=== PATIENT | female | born 1940 | race Caucasian/White ===

== ENCOUNTER → 2017-03-01 | Outpatient (CLI) | payer OTHER | LOC: FCPNEURO 06:58 | PROVIDERS: ATTEND Psychiatry & Neurology Sleep Medicine | DX: G47.33 Obstructive sleep apnea (adult) (pediatric) (principal) ==

== ENCOUNTER 2017-11-05 10:48 | Emergency (ER) | payer OTHER ==
--- NOTE | 2017-11-05 11:19 | EDPHY ---
H & P Time Seen by Provider: 11/05/17 11:18 HPI/ROS: CHIEF COMPLAINT: Back pain after a fall, and dizziness HISTORY OF PRESENT ILLNESS: Patient flew to [place] to visit her daughter and was there last week. On Sunday 6 days ago she was standing in the kitchen by the stove when she got a "head surge" felt lightheaded, felt like she was going to pass out, did fall and hit the floor. She noted that ever since that is happened she has felt her heart skipping a beat about every minute or two, and this happens intermittently since then. She has not had any recurrent syncope. Not associated with chest pain or shortness of breath. She did hit her head and has a little bump but does not have a headache today, no visual symptoms, no nausea or vomiting, no neurologic symptoms. She does have pain in her back both in her mid thoracic upper lumbar region as well as her tailbone. Not associated with weakness or numbness in extremities. REVIEW OF SYSTEMS: Eye: no change in vision ENT: no sore throat Cardiac: No chest pain Pulmonary: no cough or SOB Abdomen: no vomiting, diarrhea, abdominal pain, some decreased oral intake. Musculoskeletal: HPI Skin: Tailbone bruising Neuro: no headache Constitutional: no fever : no urinary symptoms A comprehensive 10 point review of systems is otherwise negative aside from elements mentioned in the history of present illness. PAST MEDICAL HISTORY: Includes remote history of breast cancer in 1989, appendectomy, sleep apnea. Is not on Paxil. Social history: Nonsmoker General Appearance: Alert and conversant, cooperative. Eyes: No scleral icterus. ENT, Mouth: Normal mucous membranes. No raccoon eyes or mastoid bruising. Respiratory: Normal respiratory effort, breath sounds equal, lungs are clear to auscultation. Cardiovascular: Regular rate and rhythm. No murmurs. Gastrointestinal: Abdomen is soft and non tender. Neurological: Alert, face symmetric, normal motor and sensory in extremities. Skin: Warm and dry, no rashes. Musculoskeletal: No cervical spine tenderness. She has lower thoracic and upper lumbar spine tenderness and bruising over her coccyx. Pelvis is stable. Psychiatric: Not agitated. Emergency Department course/MDM: Patient presents 6 days after syncope with injury to her back. She has her cervical spine cleared clinically by nexus. It is unlikely that she has skull fracture or intracranial hemorrhage or epidural or subdural, cranial imaging not indicated. Plan for D-dimer and troponin, cardiac monitoring, T and L- spine films. 1212: CTA discussed and consented for elevated D-dimer. 1425: results discussed; discussed with Dr. Ferrara recommends echo in ED; 1524: Normal echo per Dr. Ferrara, recommended discharge with close cardiology follow-up. Encouraged to increase oral fluid intake. Did not have any evidence of VT on monitor in the emergency department. Declined pain medication for sacral fracture. Warned that will take at least 6 weeks to heal. Smoking Status: Former smoker Constitutional: Initial Vital Signs Temperature (C) 36.5 C 11/05/17 10:58 Heart Rate 89 11/05/17 10:58 Respiratory Rate 18 11/05/17 10:58 Blood Pressure 144/83 H 11/05/17 10:58 O2 Sat (%) 95 11/05/17 10:58 O2 Delivery Mode Room Air Allergies/Adverse Reactions: adhesive tape Allergy (Verified 11/05/17 11:05) Home Medications: Medication Instructions Recorded Paxil 10 mg 04/15/09 Medical Decision Making - Diagnostics EKG Interpretation: 12-lead EKG interpreted by me; official reading is in computer system. My interpretation is sinus rhythm with multiple PVCs. Inferior Q-waves noted. Imaging Results: Imaging Impressions Chest X-Ray 11/05/17 11:39 Impression: 1. Clear lungs. No acute process. 2. No pneumothorax or acute fracture. Lumbar Spine X-Ray 11/05/17 11:40 Impression: Nothing acute identified. 2. Lumbar Spine, 2 views History: Pain, fall today, sacral pain Findings: Is possibly an S5 level, subtly displaced fracture. There is moderate- severe disk space narrowing between L4 and S1 where there are both ventral and dorsal osteophytes present. There is a mild retrolisthesis at L4-L5, likely degenerative. There are anterior osteophytes present throughout the upper lumbar spine as well. Alignment is anatomic. No acute lumbar fracture is identified. Impression: 1. Possible sacral S5 level fracture. 2. Degenerative changes in the lumbar spine. Thoracic Spine X-Ray 11/05/17 11:40 Impression: Nothing acute identified. 2. Lumbar Spine, 2 views History: Pain, fall today, sacral pain Findings: Is possibly an S5 level, subtly displaced fracture. There is moderate- severe disk space narrowing between L4 and S1 where there are both ventral and dorsal osteophytes present. There is a mild retrolisthesis at L4-L5, likely degenerative. There are anterior osteophytes present throughout the upper lumbar spine as well. Alignment is anatomic. No acute lumbar fracture is identified. Impression: 1. Possible sacral S5 level fracture. 2. Degenerative changes in the lumbar spine. Chest/Thorax CTA 11/05/17 12:07 Impression: 1. Negative for acute pulmonary embolus. 2. Incompletely characterized 1.0 cm left hepatic lesion. Would recommend correlation with any prior imaging to exclude metastatic disease. Findings and recommendations discussed with BRAXTON CADE at 1400 hour, 2017. Imaging: Discussed imaging studies w/ lending manager Radiologist Differential Diagnosis: Differential diagnosis considered for syncope and near syncope and dizziness including but not limited to vasovagal syncope, arrhythmia, dehydration, and blood loss. - Data Points Laboratory Results: Laboratory Results 11/05/17 11:20 11/05/17 11:20 11/05/17 11/05/17 11/05/17 12:03 11:20 11:20 WBC RBC Hgb Hct MCV MCH MCHC RDW Plt Count MPV Neut % (Auto) Lymph % (Auto) [place] % (Auto) Eos % (Auto) Baso % (Auto) Nucleat RBC Rel Count Absolute Neuts (auto) Absolute Lymphs (auto) Absolute Monos (auto) Absolute Eos (auto) Absolute Basos (auto) Absolute Nucleated RBC Immature Gran % Immature Gran # D-Dimer 2.22 ug/mLFEU H ug/mLFEU (0.00-0.50) Sodium 139 mEq/L mEq/L (135-145) Potassium 4.3 mEq/L mEq/L (3.3-5.0) Chloride 102 mEq/L mEq/L (97-110) Carbon Dioxide 28 mEq/l mEq/l (22-31) Anion Gap 9 mEq/L mEq/L (8-16) BUN 23 mg/dL mg/dL (7-23) Creatinine 0.8 mg/dL mg/dL (0.6-1.0) Estimated GFR > 60 Glucose 104 mg/dL H mg/dL (70-100) Calcium 9.7 mg/dL mg/dL (8.5-10.4) POC Troponin I 0.01 ng/mL ng/mL (0.00-0.08) 09/10/18 11:20 WBC 5.31 10^3/uL 10^3/uL (3.80-9.50) RBC 4.63 10^6/uL 10^6/uL (4.18-5.33) Hgb 13.9 g/dL g/dL (12.6-16.3) Hct 41.6 % % (38.0-47.0) MCV 89.8 fL fL (81.5-99.8) MCH 30.0 pg pg (27.9-34.1) MCHC 33.4 g/dL g/dL (32.4-36.7) RDW 13.3 % % (11.5-15.2) Plt Count 182 10^3/uL 10^3/uL (150-400) MPV 11.1 fL fL (8.7-11.7) Neut % (Auto) 64.6 % % (39.3-74.2) Lymph % (Auto) 17.5 % % (15.0-45.0) [place] % (Auto) 12.2 % % (4.5-13.0) Eos % (Auto) 4.5 % % (0.6-7.6) Baso % (Auto) 0.8 % % (0.3-1.7) Nucleat RBC Rel Count 0.0 % % (0.0-0.2) Absolute Neuts (auto) 3.43 10^3/uL 10^3/uL (1.70-6.50) Absolute Lymphs (auto) 0.93 10^3/uL L 10^3/uL (1.00-3.00) Absolute Monos (auto) 0.65 10^3/uL 10^3/uL (0.30-0.80) Absolute Eos (auto) 0.24 10^3/uL 10^3/uL (0.03-0.40) Absolute Basos (auto) 0.04 10^3/uL 10^3/uL (0.02-0.10) Absolute Nucleated RBC 0.00 10^3/uL 10^3/uL (0-0.01) Immature Gran % 0.4 % % (0.0-1.1) Immature Gran # 0.02 10^3/uL 10^3/uL (0.00-0.10) D-Dimer Sodium Potassium Chloride Carbon Dioxide Anion Gap BUN Creatinine Estimated GFR Glucose Calcium POC Troponin I Medications Given: Discontinued Medications Sodium Chloride (Ns) 1,000 mls @ 0 mls/hr IV EDNOW ONE; Wide Open PRN Reason: Protocol Stop: 11/05/17 14:23 Last Admin: 11/05/17 14:27 Dose: 1,000 mls Point of Care Test Results: Chemistry 11/05/17 12:03 POC Troponin I 0.01 ng/mL ng/mL (0.00-0.08) Departure - Departure Disposition: Home, Routine, Self-Care Clinical Impression: PVC (premature ventricular contraction) Sacral fracture, closed Qualifiers: Encounter type: initial encounter Zone of sacrum fracture: unspecified portion of sacrum Qualified Code(s): S32.10XA - Unspecified fracture of sacrum, initial encounter for closed fracture Condition: Good Instructions: Sacral Fracture (ED) Additional Instructions: Please go tomorrow to [facility] at 10:30 a.m. For Holter monitor placement. Referrals: Eliezer Connolly MD [Primary Care Provider] - As per Instructions J Carlos Dominique MD [Medical Doctor] - 11/19/17 2:00 pm
--- NOTE | 2017-11-05 11:23 | CPEKG ---
Test Reason : OPEN Blood Pressure : / mmHG Vent. Rate : 082 BPM Atrial Rate : 081 BPM P-R Int : 153 ms QRS Dur : 092 ms QT Int : 367 ms P-R-T Axes : 058 006 023 degrees QTc Int : 429 ms Sinus rhythm Multiple premature complexes, vent & supraven Inferior infarct, old Confirmed by Raul Hagen ([id number]) on 11/05/2017 11:23:05 AM Referred By: Confirmed By:Raul Hagen
[2017-11-05 11:48] LABS: PLATELET COUNT 182 10^3/uL (150-400)
[2017-11-05] MEDS ORDERED: IOPAMIDOL (ISOVUE 370) 100 ML BTL IV ONE (12:19)
[2017-11-05 13:29] VITALS: BP 137/81
[2017-11-05] MEDS ORDERED: NS 1,000 ML IV ONE (14:22)
--- NOTE | 2017-11-05 15:22 | ECHO ---
[email or web address] [address] [address] Main: [phone] Fax: Transthoracic Echocardiogram Name: ANNIA SHIN MR#: [id number] Study Date: 11/05/2017 Study Time: 02:58 PM Date of : 1940 Age: 77 year(s) Height: 170.2 cm (67 in.) Weight: 100.24 kg (221 lb.) BSA: 2.11 m2 Gender: Female Examination: Echo Indication: near syncope, pvcs Image Quality: Adequate Contrast: Requested by: Raul Hagen BP: 137 mmHg/81 mmHg Heart Rate: Rhythm: Indication: near syncope, pvcs Procedure Staff Hemmer Chainstitch: Graciela Garcia RDCS Reading Physician: Jacek Ferrara MD Requesting Provider: Conclusions: Normal size left ventricle. Normal global systolic LV function. EF is 57 %. No regional wall motion abnormality. The left atrium is mildly dilated. Mild to moderate mitral regurgitation. Mild tricuspid regurgitation is present. Normal size ascending aorta measuring 3.5 cm. Measurements: Chambers Valvular Assessment AV/MV Valvular Assessment TV/PV Normal Normal Normal Name Value Range Name Value Range Name Value Range Ao [place] (2D): 3.0 cm (1.4 cm-2.6 AV Vmax: 0.91 m/s (1 m/s-1.7 TR Vmax: 2.76 mm/s ( - ) cm) m/s) TR PGmax: 30 mmHg ( - ) IVSd (2D): 1.0 cm (0.6 cm-1.1 AV maxP mmHg ( - ) syst. PAP: 35 mmHg ( - ) cm) AV meanP mmHg ( - ) PV Vmax: 0.61 m/s (0.6 m/s-0.9 LVDd (2D): 5.0 cm (3.9 cm-5.3 LVOT Vmax: 0.75 m/s (0.7 m/s-1.1 m/s) cm) m/s) PV PGmax: 1 mmHg ( - ) LVDs (2D): 3.7 cm (2.1 cm-4 GAURANG (Vmax): 2.9 cm2 ( - ) cm) GAURANG (VTI): 2.8 cm ( - ) LVPWd (2D): 0.9 cm ( - ) MV E Vmax: 0.63 m/s ( - ) LVOTd 2.1 cm 2.1 cm mm MV A Vmax: 0.76 m/s ( - ) LVEF (BP): 57 % (>=55 %) MV E/A: 0.83 ( - ) RVDd(2D): 3.5 cm (1.9 cm-3.8 MV PHT: 0.057 s ( - ) cmmm) MVA (PHT): 3.9 s ( - ) Continued Measurements: Chambers Valvular Assessment AV/MV Valvular Assessment TV/PV Patient: ANNIA SHIN Study Date: 11/05/2017 Page 1 of 2 02:58 PM Name Value Name Value Name Value LADs: 3.6 cm MV DecTime: 180 m/s CVP (est.): 5 mmHg LADs Lon.7 cm MV E/E' Septal: 9.10 LA Area: 23.0 cm2 MV E/E' Lateral: 9.10 LA Volume: 78 ml MR ERO: 0.270 cm2 LA Volume Index: 37.0 ml/m2 MR PISA radius: 8 mm RA Area: 20.6 cm2 MR Reg. Volume: 58 ml Additional Vessels Name Value Ao Ascendin.5 cm Inferior Vena Cava: 1.6 cm Findings: Left Ventricle: Normal size left ventricle. No LV hypertrophy. Normal global systolic LV function. EF is 57 %. No regional wall motion abnormality. Unable to assess diastolic dysfunction. Right Ventricle: Normal size right ventricle. Normal RV function. Left Atrium: The left atrium is mildly dilated. Right Atrium: The right atrium is normal in size. Mitral Valve: The mitral valve is normal in appearance and function. No mitral stenosis is present. Mild to moderate mitral regurgitation. Aortic Valve: The aortic valve is tri-leaflet. Trivial aortic valve regurgitation. No aortic valve stenosis is present. Tricuspid Valve: The tricuspid valve is normal in appearance and function. Mild tricuspid regurgitation is present. The pulmonary artery pressure is normal. Right ventricular systolic pressure measures 35mmHg. Pulmonic Valve: The pulmonic valve is normal in appearance and function. Trivial pulmonic valve regurgitation. Aorta: The aorta is normal. Normal size aortic root measuring 3.0 cm. Normal size ascending aorta measuring 3.5 cm. IVC: The IVC is normal sized. Pericardium: No pericardial effusion. No pleural effusion. (No Signature Object) Patient: ANNIA SHIN Study Date: 11/05/2017 Page 2 of 2 02:58 PM [id number]
== END 2017-11-05 15:50 | disposition home or self-care (01) ==
DX: I49.3 Ventricular premature depolarization (principal); S32.10XA Unspecified fracture of sacrum, initial encounter for closed fracture; W19.XXXA Unspecified fall, initial encounter; Y92.000 Kitchen of unspecified non-institutional (private) residence as the place of occurrence of the external cause; Z87.891 Personal history of nicotine dependence
CPT/HCPCS: 71046; 71275; 72070; 72100; 93005; 93306; 96360; 99285; Q9967; 84484-PO

== ENCOUNTER 2017-11-08 16:28 | Emergency (ER) | payer OTHER ==
--- NOTE | 2017-11-08 17:27 | EDPHY ---
H & P Stated Complaint: FEELS HEART RACING/HEAD RUSHES SEEN SUNDAY FOR SAME Time Seen by Provider: 11/08/17 17:01 HPI/ROS: CHIEF COMPLAINT: Palpitations HISTORY OF PRESENT ILLNESS: 77-year-old female presents with palpitations. Recent intermittent palpitations, associated with lightheadedness. She was seen in this emergency department 2 days ago for similar symptoms. CT pulmonary angiogram was unremarkable and echocardiogram revealed mild to moderate mitral regurgitation and a normal ejection fraction. She had a Holter monitor placed yesterday morning and just had the monitor removed. After removal of the monitor she had an episode of palpitations, associated with dizziness. Episode lasted several seconds. Now resolved. REVIEW OF SYSTEMS: complete 10 point ROS negative except at noted in the HPI - Personal History Current Tetanus Diphtheria and Acellular Pertussis (TDAP): Yes - Medical/Surgical History Hx Asthma: No Hx Chronic Respiratory Disease: No Hx Diabetes: No Hx Cardiac Disease: No Hx Renal Disease: No Hx Cirrhosis: No Hx Alcoholism: No Hx HIV/AIDS: No Hx Splenectomy or Spleen Trauma: No Other PMH: Br CA, appy, deviated septum, sleep apnea - Social History Smoking Status: Former smoker - Physical Exam Exam: General Appearance: Alert, pleasant Eyes: Pupils equal and round, no conjunctival pallor or injection ENT, Mouth: Mucous membranes moist Neck: Normal inspection Respiratory: Lungs are clear to auscultation Cardiovascular: Regular rate and rhythm, no murmur Gastrointestinal: Abdomen is soft and nontender Neurological: A&O, nonfocal, normal gait Skin: Warm and dry, no rash Extremities: Nontender, no pedal edema Psychiatric: Mood and affect normal Constitutional: Initial Vital Signs Temperature (C) 36.5 C 11/08/17 16:30 Heart Rate 66 11/08/17 16:30 Respiratory Rate 18 11/08/17 16:30 Blood Pressure 178/90 H 11/08/17 16:30 O2 Sat (%) 93 11/08/17 16:30 O2 Delivery Mode Room Air Allergies/Adverse Reactions: adhesive tape Allergy (Verified 11/08/17 16:29) Home Medications: Medication Instructions Recorded NK [No Known Home Meds] 11/08/17 Medical Decision Making - Diagnostics EKG Interpretation: EKG interpreted by me reveals normal sinus rhythm, rate 78, multiple PVCs. Interpretation: Abnormal EKG ED Course/Re-evaluation: This patient presents with intermittent palpitations. [facility] called for Holter results, but it is after 5pm and no one is in the office. EKG reveals PVCs. Patient is clearly symptomatic when the PVCs occur. Old medical record reviewed and patient had extensive evaluation 2 days ago the emergency department. I feel that she is safe and stable for discharge home. She will follow up tomorrow with [facility] for Holter monitor results. Will start taking a baby aspirin daily. Differential Diagnosis: Includes though not limited to SVT, atrial fibrillation, PVCs, ventricular dysrhythmia. Departure - Departure Disposition: Home, Routine, Self-Care Clinical Impression: Palpitations Condition: Good Instructions: Heart Palpitations (ED) Additional Instructions: Call tomorrow morning for your Holter monitor test results. Return for worsening or persistent symptoms. Referrals: Eliezer Connolly MD [Primary Care Provider] - As per Instructions
[2017-11-08 17:39] VITALS: BP 186/98
--- NOTE | 2017-11-08 19:29 | CPEKG ---
Test Reason : OPEN Blood Pressure : / mmHG Vent. Rate : 078 BPM Atrial Rate : 080 BPM P-R Int : 160 ms QRS Dur : 091 ms QT Int : 393 ms P-R-T Axes : 032 -14 008 degrees QTc Int : 448 ms Sinus rhythm Multiform ventricular premature complexes Confirmed by Yadi Arambula ([id number]) on 11/08/2017 7:28:30 PM Referred By: Confirmed By:Yadi Arambula
== END 2017-11-08 17:39 | disposition home or self-care (01) ==
DX: R00.2 Palpitations (principal)

== ENCOUNTER 2017-12-31 11:03 | Observation (INO) | payer OTHER ==
[2017-12-31] MEDS ORDERED: NS 1,000 ML IV ONE (11:07)
[2017-12-31 11:51] LABS: PLATELET COUNT 181 10^3/uL (150-400)
[2017-12-31 11:58] LABS: PROTIME(PATIENT) 13.4 SEC (12.0-15.0)
--- NOTE | 2017-12-31 12:04 | PDGENHP ---
History & Physical Chief Complaint: SVT History of Present Illness: Ms. Leonard presents today for EPS with possible SVT ablation in the setting of recurrent syncope and near-syncope resulting in injury. Relevant Physical Exam: S1S2 RRR, respiratory exam CTA, a&o x3, pulses 2+ bilaterally. Cardiorespiratory Assessment: EPS with possible SVT ablation
[2017-12-31] MEDS ORDERED: BUPIVACAINE 0.75% 10 ML SDV ONE (13:43)
[2017-12-31] MEDS ORDERED: ISOPROTERENOL HCL/D5W 0.2 MG/50 ML BAG IV ONE (13:43)
[2017-12-31] MEDS ORDERED: LIDOCAINE 1% 300 MG/30 ML SDV ONE (13:43)
[2017-12-31] MEDS ORDERED: HEPARIN 10,000 UNIT/10 ML MDV (1,000 UNIT/ML) ONE (13:43)
[2017-12-31] MEDS ORDERED: PROPOFOL 200 MG/20 ML VIAL ONE ×3 (14:13→15:41)
[2017-12-31] MEDS ORDERED: fentaNYL 250 MCG/5 ML INJ ONE ×2 (14:14→15:26)
[2017-12-31] MEDS ORDERED: LIDOCAINE 2% 2 ML INJ ONE (14:28)
[2017-12-31] MEDS ORDERED: ROCURONIUM 50 MG/5 ML VIAL ONE ×3 (14:28→15:20)
--- NOTE | 2017-12-31 14:47 | PDANEPAE ---
ANE Past Medical History - Cardiovascular History Hx Hypertension: No Hx Arrhythmias: Yes Hx Chest Pain: No Hx Coronary Artery / Peripheral Vascular Disease: No Hx CHF / Valvular Disease: No Hx Palpitations: Yes - Pulmonary History Hx Oxygen in Use at Home: No - Endocrine History Hx Diabetes: No Hypothyroid: No Hyperthyroid: No Obesity: severe ANE Review of Systems Review of Systems: ANE Patient History - Allergies Allergies/Adverse Reactions: adhesive tape Allergy (Verified 11/08/17 16:29) - Home Medications Home Medications: Metoprolol Tartrate [Lopressor 25 mg (*)] 25 mg PO BID 12/24/17 [Last Taken Unknown] Propranolol HCl [Inderal 20mg (*)] 20 - 40 mg PO AD 12/24/17 [Last Taken Unknown ] - Smoking Hx Smoking Status: Former smoker ANE Labs/Vital Signs - Labs Result Diagrams: 12/31/17 11:30 12/31/17 11:30 ANE Physical Exam - Airway Neck exam: decreased ROM Mallampati Score: Class 1 Mouth exam: normal dental/mouth exam - Pulmonary Pulmonary: no respiratory distress - Cardiovascular Cardiovascular: regular rate and rhythym - ASA Status ASA Status: III ANE Anesthesia Plan Anesthesia Plan: general endotracheal anesthesia Urgent/Emergent Case: Chandni toro completed preop but documented later for safe timely pt care
[2017-12-31] MEDS ORDERED: MIDAZOLAM 2 MG/2 ML VIAL ONE (14:51)
[2017-12-31] MEDS ORDERED: PHENYLEPHRINE HCL 100 MCG/ML SYR ONE (15:17)
[2017-12-31] MEDS ORDERED: ONDANSETRON 4 MG/2 ML VIAL ONE (15:26)
[2017-12-31] MEDS ORDERED: DEXAMETHASONE 4 MG/ML VIAL ONE ×2 (15:26)
[2017-12-31] MEDS ORDERED: SUGAMMADEX SODIUM 200 MG/2 ML VIAL IVP ONE (16:07)
[2017-12-31] MEDS ORDERED: ACETAMINOPHEN 325 MG TAB PO PRN (16:08)
--- NOTE | 2017-12-31 16:35 | EPPROC ---
Electrophysiology Procedure Note: ELECTROPHYSIOLOGIC STUDY AND CATHETER MEDIATED ABLATION OF SLOW/FAST AV CASSANDRA REENTRY TACHYCARDIA PROCEDURES PERFORMED: 36625-59 EP evaluation with RA/RV/LA pace/record, with arrhythmia induction 63851-01 EP evaluation with RA/RV pace record, insert/reposition catheter, with arrhythmia induction 88784 Intracardiac catheter ablation, SVT arrhythmogenic focus 12749 3D mapping Fluoroscopy INDICATION: PROCEDURE: Catheters & Anesthesia: The patient arrived in the Electrophysiology Laboratory in the fasting state. The right clavicular region, right groin, and left groin area were prepped and draped in the usual sterile manner. Anesthesiologist Dr. Eva Casper administered general anesthesia. Appropriate non-invasive blood pressure, pulse oximetry and end-tidal CO2 monitoring was established. All catheters were placed percutaneously using the modified Seldinger technique , and advanced into position under fluoroscopic guidance. One #6 Bolivian hexapolar non-deflectable electrode catheter was inserted into the right atrial appendage via the left femoral vein (2mm spacing; except the proximal ring which was 25cm from the tip used for unipolar recordings). One #7 Bolivian deflectable octapolar electrode catheter was advanced to the His-bundle position via the left femoral vein (2mm spacing). One #7 [place]ian deflectable quadrapolar catheter was advanced to the anteroseptal right ventricle via the right femoral vein. One #7 [place]ivian deflectable catheter with 10 pairs of electrodes was placed via the right femoral vein into the coronary sinus. Heparin was given to keep ACT > 200 s. Programmed stimulation was performed from the right atrium, right ventricle and coronary sinus (left atrium). Parahisian pacing demonstrated constant H-A interval with changing V-A intervals and stimulus-A intervals during capture and loss of capture of proximal RBB proving retrograde conduction over AV node. AVNRT was induced easily during infusion of isoproterenol 2 mcg/min. Ventricular extrastimuli delivered during tachycardia without altering antegrade His bundle activation did not advance next atrial potential, indicating that the tachycardia was not utilizing an accessory pathway for retrograde conduction. VA interval was 35 ms. Post entrainment of the tachycardia from the ventricle, there was VAHV response. Mapping of the right atrium and coronary sinus during AVNRT identified earliest atrial activation above the tendon of Bianca at a level slightly posterior to the level of the His bundle, consistent with retrograde conduction over the fast AV cassandra pathway. A #8 Bolivian deflectable quadrapolar electrode catheter (2mm-5mm-2mm spacing) with 4 mm tip electrode and sensor for the 3D mapping Carto system was advanced to the right atrium. 3 D mapping of the inter-atrial septum and coronary sinus was performed and location of the AV node was marked. A Mobi sheath was used. RF applications were delivered to the region between the tricuspid annulus and the coronary sinus ostium, at the level of the upper edge of the coronary sinus ostium. Radiofrequency applications were also delivered along the roof of the proximal coronary sinus. Junctional rhythm occurred during all of the RF applications. Programmed stimulation was continued post ablation at baseline and during graded doses of isoproterenol upto 2 mcg/min. Sustained AVNRT was not inducible. There were no echo beats. The catheters were removed. Sheaths were removed in the EP lab after applying subcutaneous purse string suture. The patient was transferred to the cardiovascular holding area in stable condition. There were no apparent complications. Results: A. Spontaneous Intervals: Pre ablation SCL 1260 ms AH 75 ms HV 40 ms Post ablation SCL 730 ms AH 65 ms HV 40 ms B. Antegrade AV cassandra function (decremental pacing) Pre ablation FPERP 400 ms SPERP 360 ms WBB CL 350 ms Post ablation FPERP 400 ms WBB CL 390 ms C. Retrograde AV cassandra function (decremental pacing) Pre ablation FPERP 330 ms WBB CL 320 ms D. Arrhythmias: Sustained slow/fast AVNRT Cycle length 270 ms, AH interval 220 ms, CHAVES interval 50 ms VA interval 35 ms CONCLUSIONS 1. 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 ( Slow/fast AVNRT). 2. Successful ablation of the slow AV cassandra pathway with elimination of 1:1 antegrade conduction over the slow AV cassandra pathway, all retrograde conduction over the slow AV cassandra pathway and the inducibility of AVNRT. 3. No complications. Patient Problems: Problems Problem Status Onset Supraventricular tachycardia Acute
[2018-01-01 05:04] LABS: PLATELET COUNT 160 10^3/uL (150-400)
[2018-01-01 08:13] VITALS: BP 114/60
[2018-01-01] MEDS ORDERED: ASPIRIN 81 MG CHEWABLE TAB PO SCH (09:00)
--- NOTE | 2018-01-01 11:00 | ECHO ---
[email or web address] [address] [address] Main: [phone] Fax: Transthoracic Echocardiogram Name: ANNIA SHIN MR#: [id number] Study Date: 01/01/2018 Study Time: 09:55 AM Date of : 1940 Age: 77 year(s) Height: 167.6 cm (66 in.) Weight: 108.86 kg (240 lb.) BSA: 2.16 m2 Gender: Female Examination: Echo Indication: Image Quality: Contrast: Requested by: Cecil Sellers BP: 114 mmHg/60 mmHg Heart Rate: Rhythm: Normal sinus rhythm with ectopy Indication: Procedure Staff Seo Analyst: Darshan Randall RDCS Reading Physician: Montez Briones MD Requesting Provider: Conclusions: Normal global systolic LV function. EF is 72 %. Grade 1 diastolic dysfunction (abnormal relaxation). Measurements: Chambers Valvular Assessment AV/MV Valvular Assessment TV/PV Normal Normal Normal Name Value Range Name Value Range Name Value Range Ao Keny[place] (MM): 2.8 cm (2.2 cm-3.7 AV Vmax: 1.51 m/s (1 m/s-1.7 TR Vmax: 2.77 mm/s ( - ) cm) m/s) TR PGmax: 31 mmHg ( - ) IVSd (2D): 0.9 cm (0.6 cm-1.1 AV maxP mmHg ( - ) syst. PAP: 36 mmHg ( - ) cm) LVOT Vmax: 0.95 m/s (0.7 m/s-1.1 PV Vmax: 0.69 m/s (0.6 m/s-0.9 LVDd (2D): 4.4 cm (3.9 cm-5.3 m/s) m/s) cm) MV E Vmax: 0.72 m/s ( - ) PV PGmax: 2 mmHg ( - ) LVDs (2D): 2.6 cm (2.1 cm-4 MV A Vmax: 0.58 m/s ( - ) cm) MV E/A: 1.24 ( - ) LVPWd (2D): 0.8 cm ( - ) LVEF (2D): 72 (>=54 %) Continued Measurements: Chambers Valvular Assessment AV/MV Valvular Assessment TV/PV Name Value Name Value Name Value LADs Lon.3 cm MV E' Septal: 0.08 m/s CVP (est.): 5 mmHg LA Area: 16.5 cm2 MV E/E' Septal: 9.10 LA Volume: 44 ml MV E/E' Lateral: 7.30 LA Volume Index: 20.4 ml/m2 Patient: ANNIA SHIN Study Date: 01/01/2018 Page 1 of 2 09:55 AM Findings: Left Ventricle: Normal size left ventricle. No LV hypertrophy. Normal global systolic LV function. EF is 72 %. No regional wall motion abnormality. Grade 1 diastolic dysfunction (abnormal relaxation). Right Ventricle: Normal size right ventricle. Normal RV function. Left Atrium: The left atrium is normal in size. Right Atrium: The right atrium is normal in size. Mitral Valve: The mitral valve is normal in appearance and function. Trivial to mild mitral regurgitation. No mitral stenosis is present. Aortic Valve: The aortic valve is tri-leaflet and functions normally. There is no aortic valve regurgitation. Tricuspid Valve: The tricuspid valve appears normal. Pulmonic Valve: The pulmonic valve is normal in appearance and function. Aorta: The aorta is normal. Pericardium: No pericardial effusion. Exam Comments: Ectopy noted during exam.. (No Signature Object) Patient: ANNIA SHIN Study Date: 01/01/2018 Page 2 of 2 09:55 AM [id number]
--- NOTE | 2018-01-01 11:56 | GDS ---
ADMITTING DIAGNOSIS: Supraventricular tachycardia. 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 HOSPITAL COURSE: Batsheva Bell was admitted 12/31/2017, for EP study and SVT ablation in the setting of symptomatic SVT with near syncope, syncope, and injury. EP study demonstrated AV cassandra re-entrant tachycardia using the slow AV cassandra pathway for antegrade conduction and fast AV cassandra pathway for retrograde conduction. Patient underwent successful ablation with elimination of 1:1 antegrade conduction over the slow AV cassandra pathway. No chest discomfort , lightheadedness, dizziness, palpitations, or syncope. No issues overnight. The patient reports feeling quite well this morning without specific concerns. Lab values are within normal limits including troponin 0.230. ECG demonstrates normal UT interval. Echo is unchanged from pre-procedure. She is stable for discharge at this time. CONCLUSION: 1. AV cassandra re-entrant tachycardia using the slow AV cassandra pathway for antegrade conduction and the fast AV cassandra pathway for retrograde conduction. Slow/fast AVNRT. 2. Successful ablation of the slow AV cassandra pathway with elimination of 1:1 antegrade conduction over the slow AV cassandra pathway, all retrograde conduction over the slow AV cassandra pathway and ablation of AVNRT. 3. No complications. PHYSICAL EXAMINATION: GENERAL: Patient is feeling quite well this morning without issues or concerns. She is ambulating independently. She denies lightheadedness, dizziness, syncope, palpitations, or other associated symptoms. CARDIOVASCULAR: Regular rate and rhythm without gallops or rubs. RESPIRATORY: Exam is clear to auscultation. EXTREMITIES: Groin sites are clean and dry, nontender without redness, swelling, or oozing from the site. Pulses are 2+ bilaterally. DISCHARGE PLAN: 1. Patient was educated regarding groin precautions including restriction of lifting more than 10 pounds for 10 days. 2. Patient will make sure to get up and walk around every 45 minutes for 45 days. 3. No submerged bathing including baths or hot tubs until her groin sites are fully healed. 4. Patient will start aspirin 81 mg daily. 5. Patient will follow up in clinic as scheduled. She will contact the clinic with any new or concerning symptoms in the meantime. /[id number]/MODL MTDD
--- NOTE | 2018-01-01 13:39 | ASDISCHSUM ---
Discharge Information Plan Status:Home with No Needs Medically Cleared to Leave:12/31/2017 Discharge Date:01/01/2018 12:30 PM CM D/C Disposition:Home, Routine, Self-Care ADT D/C Disposition:Home, Routine, Self-Care Projected Discharge Date:01/01/2018 12:30 PM Transportation at D/C: Discharge Delay Reason: Follow-Up Date:01/01/2018 12:30 PM Discharge Slot: Final Diagnosis: Placement Information Patient Contact Information Contact Name:RONALD Relationship:Friend Address: Work Phone: City: [facility] Phone: State/[place] Code: Email: Financial Information Financial Class:Medicare Advantage Plans Primary Plan Desc:[facility] [facility] ADV[employer]AGE PLANS Primary Plan Number:[id number] Secondary Plan Desc: Secondary Plan Number: Assessment Information LACE LACE Length of stay for Answers: Less than 1 day current admission Acuity / Level of Answers: No Care: Did the patient have an inpatient admission? Comorbidities - select Answers: Other Notes: s/p ablation all that apply # of Emergency department Answers: 1-2 visits in the last 6 months Score: 2 Date Signed: 01/01/2018 01:38 PM Electronically Signed By:Rosemary Baird RN Intervention Information
--- NOTE | 2018-01-02 21:59 | CPEKG ---
Test Reason : OPEN Blood Pressure : / mmHG Vent. Rate : 078 BPM Atrial Rate : 078 BPM P-R Int : 170 ms QRS Dur : 096 ms QT Int : 422 ms P-R-T Axes : 067 018 -04 degrees QTc Int : 481 ms Sinus rhythm Inferior infarct Confirmed by Fredrick Felipe ([id number]) on 01/02/2018 9:58:34 PM Referred By: Confirmed By:Fredrick Felipe
--- NOTE | 2018-01-02 22:02 | CPEKG ---
Test Reason : OPEN Blood Pressure : / mmHG Vent. Rate : 069 BPM Atrial Rate : 068 BPM P-R Int : 166 ms QRS Dur : 090 ms QT Int : 433 ms P-R-T Axes : 055 000 -01 degrees QTc Int : 464 ms Sinus rhythm Ventricular premature complex Inferior infarct Confirmed by Fredrick Felipe ([id number]) on 01/02/2018 10:02:03 PM Referred By: Confirmed By:Fredrick Felipe
--- NOTE | 2018-01-02 22:50 | CPEKG ---
Test Reason : OPEN Blood Pressure : / mmHG Vent. Rate : 069 BPM Atrial Rate : 068 BPM P-R Int : 168 ms QRS Dur : 087 ms QT Int : 429 ms P-R-T Axes : 046 -15 005 degrees QTc Int : 460 ms Sinus rhythm Atrial premature complex Leftward axis Abnormal inferior Q waves Confirmed by Fredrick Felipe ([id number]) on 01/02/2018 10:49:57 PM Referred By: Confirmed By:Fredrick Felipe
== END 2018-01-01 12:30 | disposition home or self-care (01) ==
LOC: FCATH 11:03 → F2W 16:34
PROVIDERS: ADMIT Family Medicine; ATTEND Internal Medicine Cardiovascular Disease
PROC: 02H73MZ Insertion of Cardiac Lead into Left Atrium, Percutaneous Approach (ICD-10-PCS; principal; 2017-12-31)
PROC: 02K83ZZ Map Conduction Mechanism, Percutaneous Approach (ICD-10-PCS; principal; 2017-12-31)
PROC: 5A1223Z Performance of Cardiac Pacing, Continuous (ICD-10-PCS; principal; 2017-12-31)
PROC: 02583ZZ Destruction of Conduction Mechanism, Percutaneous Approach (ICD-10-PCS; principal; 2017-12-31)
PROC: 4A023FZ Measurement of Cardiac Rhythm, Percutaneous Approach (ICD-10-PCS; principal; 2017-12-31)
PROC: B2151ZZ Fluoroscopy of Left Heart using Low Osmolar Contrast (ICD-10-PCS; principal; 2017-12-31)
DX: I47.1 Supraventricular tachycardia (principal); R55 Syncope and collapse; G47.33 Obstructive sleep apnea (adult) (pediatric); Z23 Encounter for immunization
CPT/HCPCS: 90686; 93005; 93306; 93613; 93621; 93623; 93653; C1730; C1731; C1732; C1766; G0008; G0378; J1100; J1644; J2250; J2370; J2405; J2704; J3010

== ENCOUNTER 2018-01-23 20:06 | Observation (INO) | payer OTHER ==
--- NOTE | 2018-01-23 20:35 | EDPHY ---
H & P Time Seen by Provider: 01/23/18 20:19 HPI/ROS: Chief complaint. Palpitations HPI. Patient is 77-year-old female with palpitations. On December 31 she underwent an ablation for SVT for recurrent syncope. She is wearing an event monitor and had multiple episodes of palpitations today. The event monitor notified concrete panel installer who reviewed it and patient had 36 sec of ventricular tachycardia. She had 2 other episodes of VT also today. Patient gets light headed and near syncopal and somewhat short of breath but otherwise does not have chest pain. Cardiologists called me in the emergency department and recommended admission and has recommended the patient come to the emergency department for evaluation. Patient currently has no symptoms. ROS 10 systems were reviewed and negative with the exception of the elements mentioned in the history of present illness Past Medical/Surgical History: Past medical history breast cancer, appendectomy, sleep apnea, syncope, SVT with ablation Social History: Single, nonsmoker, no alcohol Smoking Status: Former smoker Physical Exam: General Appearance: Alert pleasant well-developed female mild distress vital signs significant for blood pressure 162/106 Eyes: Pupils equal and round no pallor or injection. ENT, Mouth: Mucous membranes are moist. Respiratory: There are no retractions, lungs are clear to auscultation. Cardiovascular: Regular rate and rhythm. Gastrointestinal: Abdomen is soft and nontender, no masses, bowel sounds normal. Neurological: Awake and alert, sensory and motor exams grossly normal. Skin: Warm and dry, no rashes. Musculoskeletal: Neck is supple nontender. Extremities symmetrical, full range of motion. Psychiatric: Patient is oriented X 3, there is no agitation. Constitutional: Initial Vital Signs Temperature (C) 36.8 C 01/23/18 20:09 Heart Rate 83 01/23/18 20:09 Respiratory Rate 18 01/23/18 20:09 Blood Pressure 162/106 H 01/23/18 20:09 O2 Sat (%) 93 01/23/18 20:09 O2 Delivery Mode Room Air Allergies/Adverse Reactions: adhesive tape Allergy (Verified 01/23/18 20:20) Home Medications: Medication Instructions Recorded NK [No Known Home Meds] 01/23/18 Medical Decision Making - Diagnostics EKG Interpretation: EKG interpreted by me shows normal sinus rhythm normal interval. Left axis deviation. QRS is otherwise normal. No significant ST elevation or depression. 2 PVCs on the EKG. Rate is 82 Imaging Results: Imaging Impressions Chest X-Ray 01/23/18 20:44 Impression: 1. No acute pulmonary disease. 2. Consider chest two views when the patient's medical condition permits. Procedures: IV normal saline, ED Course/Re-evaluation: On re-evaluation patient is stable. She and I discussed laboratory EKG and x- ray results. We discussed treatment plan including recommendation for admission. She expresses understanding and agreement I consulted and discussed case initially with Dr. Garcia for cardiology I consulted discussed the case with Dr. Tejada, hospitalist who agrees to the admission Differential Diagnosis: Patient had recent ablation for SVT. A vent monitor showed episodes of ventricular tachycardia with sustain runs tonight. Patient is without symptoms currently. I considered acute coronary syndrome and dysrhythmias as well - Data Points Laboratory Results: Laboratory Results 01/23/18 20:20 01/23/18 20:20 01/23/18 01/23/18 01/23/18 20:23 20:20 20:20 WBC 6.43 10^3/uL 10^3/uL (3.80-9.50) RBC 4.46 10^6/uL 10^6/uL (4.18-5.33) Hgb 13.6 g/dL g/dL (12.6-16.3) Hct 40.5 % % (38.0-47.0) MCV 90.8 fL fL (81.5-99.8) MCH 30.5 pg pg (27.9-34.1) MCHC 33.6 g/dL g/dL (32.4-36.7) RDW 13.6 % % (11.5-15.2) Plt Count 189 10^3/uL 10^3/uL (150-400) MPV 11.0 fL fL (8.7-11.7) Neut % (Auto) 59.9 % % (39.3-74.2) Lymph % (Auto) 21.5 % % (15.0-45.0) [place] % (Auto) 14.2 % H % (4.5-13.0) Eos % (Auto) 3.0 % % (0.6-7.6) Baso % (Auto) 1.1 % % (0.3-1.7) Nucleat RBC Rel Count 0.0 % % (0.0-0.2) Absolute Neuts (auto) 3.86 10^3/uL 10^3/uL (1.70-6.50) Absolute Lymphs (auto) 1.38 10^3/uL 10^3/uL (1.00-3.00) Absolute Monos (auto) 0.91 10^3/uL H 10^3/uL (0.30-0.80) Absolute Eos (auto) 0.19 10^3/uL 10^3/uL (0.03-0.40) Absolute Basos (auto) 0.07 10^3/uL 10^3/uL (0.02-0.10) Absolute Nucleated RBC 0.00 10^3/uL 10^3/uL (0-0.01) Immature Gran % 0.3 % % (0.0-1.1) Immature Gran # 0.02 10^3/uL 10^3/uL (0.00-0.10) Sodium 137 mEq/L mEq/L (135-145) Potassium 4.2 mEq/L mEq/L (3.3-5.0) Chloride 104 mEq/L mEq/L (97-110) Carbon Dioxide 23 mEq/l mEq/l (22-31) Anion Gap 10 mEq/L mEq/L (6-14) BUN 20 mg/dL mg/dL (7-23) Creatinine 0.8 mg/dL mg/dL (0.6-1.0) Estimated GFR > 60 Glucose 96 mg/dL mg/dL (70-100) Calcium 9.4 mg/dL mg/dL (8.5-10.4) POC Troponin I 0.01 ng/mL ng/mL (0.00-0.08) NT-Pro-B Natriuret Pep 178 pg/mL pg/mL (0-450) Point of Care Test Results: Chemistry 01/23/18 20:23 POC Troponin I 0.01 ng/mL ng/mL (0.00-0.08) Departure - Departure Disposition: [facility] Inpatient Acute Clinical Impression: Ventricular tachycardia, Palpitations Condition: Good Referrals: Eliezer Connolly MD [Primary Care Provider] - As per Instructions
[2018-01-23 20:51] LABS: PLATELET COUNT 189 10^3/uL (150-400)
[2018-01-23] MEDS ORDERED: ONDANSETRON 4 MG/2 ML VIAL IVP PRN (22:18)
[2018-01-23] MEDS ORDERED: ACETAMINOPHEN 325 MG TAB PO PRN (22:18)
[2018-01-23] MEDS ORDERED: ONDANSETRON DISINTEGRATING 4 MG TAB PO PRN (22:18)
--- NOTE | 2018-01-23 23:14 | PDGENHP ---
History and Physical - Chief Complaint Palpitations - History of Present Illness 77 yo F w/ hx of SVT s/p ablation presents with palpitations and pre-syncope. The patient developed palpitations and pre-syncope, which she describes as a "head brock", in October. She was evaluated by EP, found to have AVNRT, and underwent an ablation on 12/31. After the ablation, however, she continued to have symptoms. Her symptomatic episodes became shorter but more frequent and more intense. She had an event monitor placed today that revealed a run of VT during a symptomatic episode. She was contacted by her web mobile designer and asked to come to the ED for evaluation. At the time of my evaluation the patient is pleasant and asymptomatic. Her ECG shows sinus rhythm with PVCs, as does her telemetry monitoring at the time of my visit. She denies chest pain, SOB, or symptoms of recent illness. Case discussed with Dr. Tejada; records reviewed and summarized above. History Information - Allergies/Home Medication List Allergies/Adverse Reactions: adhesive tape Allergy (Verified 01/23/18 20:20) Home Medications: NK [No Known Home Meds] 01/23/18 [Last Taken Unknown] I have personally reviewed and updated: family history, medical history - Past Medical History SVT - Surgical History Reports: ablation Additional surgical history: B/l TKAs - Family History Additional family history: Denies family history of arrhythmia - Social History Smoking Status: Former smoker Review of Systems Review of Systems: ROS: 10pt was reviewed & negative except for what was stated in HPI & below Physical Exam Physical Exam: Temp Pulse Resp BP Pulse Ox 36.7 C 66 15 161/85 H 92 01/23/18 22:35 01/23/18 22:35 01/23/18 22:35 01/23/18 22:35 01/23/18 22:35 Constitutional: no apparent distress, not in pain Eyes: PERRL, EOMI Ears, Nose, Mouth, Throat: moist mucous membranes, no oral mucosal ulcers Cardiovascular: regular rate and rhythym, no murmur, rub, or gallop, edema ( Trace b/l SHEREEN) Respiratory: no respiratory distress, clear to auscultation Gastrointestinal: normoactive bowel sounds, soft, non-tender abdomen Skin: warm, normal color Musculoskeletal: full muscle strength, no muscle tenderness Neurologic: AAOx3, CN II-XII Intact Psychiatric: interacting appropriately, not anxious Lab Data & Imaging Review 01/23/18 20:20 01/23/18 20:20 WBC 6.43 10^3/uL (3.80-9.50) 01/23/18 20:20 RBC 4.46 10^6/uL (4.18-5.33) 01/23/18 20:20 Hgb 13.6 g/dL (12.6-16.3) 01/23/18 20:20 Hct 40.5 % (38.0-47.0) 01/23/18 20:20 MCV 90.8 fL (81.5-99.8) 01/23/18 20:20 MCH 30.5 pg (27.9-34.1) 01/23/18 20:20 MCHC 33.6 g/dL (32.4-36.7) 01/23/18 20:20 RDW 13.6 % (11.5-15.2) 01/23/18 20:20 Plt Count 189 10^3/uL (150-400) 01/23/18 20:20 MPV 11.0 fL (8.7-11.7) 01/23/18 20:20 Neut % (Auto) 59.9 % (39.3-74.2) 01/23/18 20:20 Lymph % (Auto) 21.5 % (15.0-45.0) 01/23/18 20:20 Keith % (Auto) 14.2 % (4.5-13.0) H 01/23/18 20:20 Eos % (Auto) 3.0 % (0.6-7.6) 01/23/18 20:20 Baso % (Auto) 1.1 % (0.3-1.7) 01/23/18 20:20 Nucleat RBC Rel Count 0.0 % (0.0-0.2) 01/23/18 20:20 Absolute Neuts (auto) 3.86 10^3/uL (1.70-6.50) 01/23/18 20:20 Absolute Lymphs (auto) 1.38 10^3/uL (1.00-3.00) 01/23/18 20:20 Absolute Monos (auto) 0.91 10^3/uL (0.30-0.80) H 01/23/18 20:20 Absolute Eos (auto) 0.19 10^3/uL (0.03-0.40) 01/23/18 20:20 Absolute Basos (auto) 0.07 10^3/uL (0.02-0.10) 01/23/18 20:20 Absolute Nucleated RBC 0.00 10^3/uL (0-0.01) 01/23/18 20:20 Immature Gran % 0.3 % (0.0-1.1) 01/23/18 20:20 Immature Gran # 0.02 10^3/uL (0.00-0.10) 01/23/18 20:20 Sodium 137 mEq/L (135-145) 01/23/18 20:20 Potassium 4.2 mEq/L (3.3-5.0) 01/23/18 20:20 Chloride 104 mEq/L (97-110) 01/23/18 20:20 Carbon Dioxide 23 mEq/l (22-31) 01/23/18 20:20 Anion Gap 10 mEq/L (6-14) 01/23/18 20:20 BUN 20 mg/dL (7-23) 01/23/18 20:20 Creatinine 0.8 mg/dL (0.6-1.0) 01/23/18 20:20 Estimated GFR > 60 01/23/18 20:20 Glucose 96 mg/dL (70-100) 01/23/18 20:20 Calcium 9.4 mg/dL (8.5-10.4) 01/23/18 20:20 Magnesium 2.2 mg/dL (1.6-2.3) 01/23/18 20:20 POC Troponin I 0.01 ng/mL (0.00-0.08) 01/23/18 20:23 NT-Pro-B Natriuret Pep 178 pg/mL (0-450) 01/23/18 20:20 Imaging Review: Imaging Impressions Chest X-Ray 01/23/18 20:44 Impression: 1. No acute pulmonary disease. 2. Consider chest two views when the patient's medical condition permits. Visualized and Interpreted EKG results: Yes EKG Interpretation: Positive for: normal sinsus rhythm, other (PVCs) Assessment & Plan Assessment: 77 yo F w/ hx of SVT s/p ablation presents with palpitations and pre-syncope and was found to have VT on event monitor. Plan: 1. VT - Noted on event monitor on the day of admission during symptomatic episode. This resolved without intervention. ECG (personally reviewed/ interpreted) reveals NSR with frequent ectopy. She is currently asymptomatic. - Admit to PCU - Monitor on telemetry - Obtain TTE - Cardiology consulted, will see patient in the morning - NPO @ MN 2. Hx SVT - AVNRT s/p ablation on 12/31. After the ablation, however, her symptoms of pre-syncope and palpitations continued. She has been on metoprolol but has not taken this in the last 4 days. - Acute management as above Diet - NPO @ MN Code - Full Ppx - SCDs Dispo - Admit under inpatient status
[2018-01-24 04:42] LABS: PLATELET COUNT 167 10^3/uL (150-400)
[2018-01-24 08:59] VITALS: BP 154/82
--- NOTE | 2018-01-24 09:13 | ECHO ---
[email or web address] [address] [address] Main: [phone] Fax: Transthoracic Echocardiogram Name: ANNIA SHIN MR#: [id number] Study Date: 01/24/2018 Study Time: 08:27 AM Date of : 1940 Age: 77 year(s) Height: 170.2 cm (67 in.) Weight: 107.05 kg (236 lb.) BSA: 2.17 m2 Gender: Female Examination: Echo Indication: EP in past, Abnormal EKG, Ventricular tachycardia Image Quality: Contrast: Requested by: Robert Ohara BP: 161 mmHg/76 mmHg Heart Rate: Rhythm: Normal sinus rhythm with ectopy Indication: EP in past, Abnormal EKG, Ventricular tachycardia Procedure Staff Occupational Therapist'S Assistant: Darshan Randall RDCS Reading Physician: Montez Briones MD Requesting Provider: Conclusions: Normal global systolic LV function. EF is 72 %. Minimal aortic cusp calcification is noted. Trivial tricuspid valve regurgitation. Measurements: Chambers Valvular Assessment AV/MV Valvular Assessment TV/PV Normal Normal Normal Name Value Range Name Value Range Name Value Range Ao [place] (MM): 2.8 cm (2.2 cm-3.7 AV Vmax: 1.07 m/s (1 m/s-1.7 TR Vmax: 3.34 mm/s ( - ) cm) m/s) TR PGmax: 45 mmHg ( - ) IVSd (2D): 0.8 cm (0.6 cm-1.1 AV maxP mmHg ( - ) syst. PAP: 50 mmHg ( - ) cm) LVOT Vmax: 0.82 m/s (0.7 m/s-1.1 PV Vmax: 0.83 m/s (0.6 m/s-0.9 LVDd (2D): 5.2 cm (3.9 cm-5.3 m/s) m/s) cm) AR (PHT): 407 ms ( - ) PV PGmax: 3 mmHg ( - ) LVDs (2D): 3.1 cm (2.1 cm-4 MV E Vmax: 0.55 m/s ( - ) cm) MV A Vmax: 0.76 m/s ( - ) LVPWd (2D): 0.9 cm ( - ) MV E/A: 0.72 ( - ) LVEF (2D): 72 (>=54 %) Continued Measurements: Chambers Valvular Assessment AV/MV Valvular Assessment TV/PV Name Value Name Value Name Value LADs Lon.4 cm MV E' Septal: 0.05 m/s CVP (est.): 5 mmHg LA Area: 17.4 cm2 MV E/E' Septal: 10.70 LA Volume: 56 ml MV E/E' Lateral: 7.30 LA Volume Index: 25.8 ml/m2 AR Vmax: 2.10 cm/s Patient: ANNIA SHIN Study Date: 01/24/2018 Page 1 of 2 08:27 AM Findings: Left Ventricle: Normal size left ventricle. No LV hypertrophy. Normal global systolic LV function. EF is 72 %. No regional wall motion abnormality. Grade 1 diastolic dysfunction (abnormal relaxation). Right Ventricle: Normal size right ventricle. Normal RV function. Left Atrium: The left atrium is normal in size. Right Atrium: The right atrium is normal in size. Mitral Valve: The mitral valve is normal in appearance. Trivial to mild mitral regurgitation. Aortic Valve: The aortic valve is tri-leaflet. Minimal aortic cusp calcification is noted. Trivial aortic valve regurgitation. Tricuspid Valve: The tricuspid valve appears normal. Trivial tricuspid valve regurgitation. The pulmonary artery pressure is mildly increased. Pulmonic Valve: The pulmonic valve is normal in appearance and function. Aorta: The aorta is normal. Pericardium: No pericardial effusion. (No Signature Object) Patient: ANNIA SHIN Study Date: 01/24/2018 Page 2 of 2 08:27 AM [id number]
--- NOTE | 2018-01-24 10:03 | PDCARPN ---
Cardiology Progress Note Chief Complaint: SVT with aberrancy Assessment/Plan: Assessment: 1. Wide-complex tachycardia: Ms. Leonard was admitted last night after she received a call regarding her [employer] monitor, which demonstrated several runs of wide-complex tachycardia. Strips reviewed with Dr. Briones this morning, which demonstrate likely SVT with aberrancy. Ms. Leonard is scheduled for a repeat SVT ablation 01/30. Plan: 1. Repeat SVT ablation next week - she will hold her beta shawna for 5 days pre -procedure 2. Patent is appropriate for discharge home today. 3. She will follow-up in clinic 4-weeks post-ablation 01/24/18 09:54 Subjective: Patient reports feeling quite well overall without any specific issues or concerns. Reviewed/Discussed With: multidisciplinary team Time Spent with Patient: greater than 25 minutes Time Spent with Patient: Greater than 25 minutes spent on this patients care, greater than 50% of time spent counseling, educating, and coordinating care regarding the above mentioned plan. Objective: Vital Signs (8 Hrs) Temp Pulse Resp BP Pulse Ox 01/24/18 08:58 36.4 C 65 19 154/82 H 90 L 01/24/18 04:00 36.8 C 71 16 161/76 H 94 Intake/Output (24 Hrs) 01/23/18 01/24/18 01/25/18 05:59 05:59 05:59 Other: Weight 106.6 kg Number of Voids Toilet 1 Number of Stools Toilet 1 Result Diagrams: 01/24/18 03:34 01/24/18 03:34 ICD10 Worksheet Patient Problems: Problems Problem Status Onset Palpitations Acute Ventricular tachycardia Acute AVNRT (AV cassandra re-entry tachycardia) Acute Supraventricular tachycardia Acute
--- NOTE | 2018-01-24 12:36 | PDDCSUM ---
Discharge Summary Discharge Summary: 77 yo F w/ hx of SVT s/p ablation presents with palpitations and pre-syncope and was found to have VT on event monitor. Cardiology asked her to present to the ER and she was subsequently admitted. This morning the rhythm was reviewed and it was discovered that the strips were actually SVT with aberrancy. She is scheduled for a repeat SVT ablation on 01/30. She is cleared for d/c per Dr. Briones. Plan: 1. Repeat SVT ablation next week - she will hold her beta shawna for 5 days pre -procedure 2. She will follow-up in clinic 4-weeks post-ablation Discharge Diagnosis 1. VT noted on event monitor: found to be SVT per above - 2. Hx SVT - AVNRT s/p ablation on 12/31. repeat ablation per above Exam: NAD AAOX3 RRR CTA B S/ND/ND MEDS: SEE MED REC F/U: PER ABOVE TOTAL TIME SPENT ON D/C IS 35 MINS
--- NOTE | 2018-01-26 19:13 | CPEKG ---
Test Reason : OPEN Blood Pressure : / mmHG Vent. Rate : 082 BPM Atrial Rate : 082 BPM P-R Int : 159 ms QRS Dur : 086 ms QT Int : 383 ms P-R-T Axes : 062 000 035 degrees QTc Int : 448 ms Sinus rhythm Multiple ventricular premature complexes Probable inferior infarct, old Confirmed by Rome Kapoor ([id number]) on 01/26/2018 7:12:50 PM Referred By: Confirmed By:Rome Kapoor
== END 2018-01-24 12:25 | disposition home or self-care (01) ==
LOC: INTOOBSV 21:13 → F2W 22:31
PROVIDERS: ADMIT Internal Medicine; ATTEND Family Medicine
PROC: B245ZZ4 Ultrasonography of Left Heart, Transesophageal (ICD-10-PCS; principal; 2018-01-23)
DX: I47.1 Supraventricular tachycardia (principal); R00.2 Palpitations; G47.33 Obstructive sleep apnea (adult) (pediatric); Z85.3 Personal history of malignant neoplasm of breast; Z87.891 Personal history of nicotine dependence
CPT/HCPCS: 71045; 93005; 93306; 99285; G0378; 84484-PO

== ENCOUNTER 2018-01-30 07:04 | Observation (INO) | payer OTHER ==
[2018-01-30] MEDS ORDERED: NS 1,000 ML IV ONE (07:05)
[2018-01-30 07:48] LABS: PLATELET COUNT 191 10^3/uL (150-400)
[2018-01-30 07:55] LABS: INR 0.92 (0.83-1.16); PROTIME(PATIENT) 12.6 SEC (12.0-15.0)
--- NOTE | 2018-01-30 08:19 | PDANEPAE ---
ANE History of Present Illness 77 yo for eps/ablation ANE Past Medical History - Cardiovascular History Hx Hypertension: No Hx Arrhythmias: Yes Hx Chest Pain: No Hx Coronary Artery / Peripheral Vascular Disease: No Hx CHF / Valvular Disease: No Hx Palpitations: Yes - Pulmonary History Hx Oxygen in Use at Home: No Hx Sleep Apnea: Yes - Endocrine History Hx Diabetes: No - Chronic Pain History Chronic Pain: No ANE Review of Systems Review of Systems: - Exercise capacity METS (RN): 4 METS ANE Patient History - Allergies Allergies/Adverse Reactions: adhesive tape Allergy (Verified 01/23/18 20:20) - Home Medications Home medications: home medication list seen and reviewed Home Medications: Acetaminophen [Tylenol 325mg (*)] 325 mg PO DAILY PRN 01/24/18 [Last Taken Unknown] - NPO status NPO Status: no food or drink >8 hours - Anes Hx Anes Hx: no prior problems - Smoking Hx Smoking Status: Former smoker ANE Labs/Vital Signs - Labs Result Diagrams: 01/30/18 07:30 01/30/18 07:30 - Vital Signs Height: 5 ft 8 in Weight: 106.141 kg ANE Physical Exam - Airway Mallampati Score: Class 2 Mouth exam: normal dental/mouth exam - Pulmonary Pulmonary: no respiratory distress - Cardiovascular Cardiovascular: regular rate and rhythym - ASA Status ASA Status: II ANE Anesthesia Plan Anesthesia Plan: general endotracheal anesthesia
[2018-01-30] MEDS ORDERED: ISOPROTERENOL HCL/D5W 0.2 MG/50 ML BAG IV ONE (08:22)
[2018-01-30] MEDS ORDERED: BUPIVACAINE 0.75% 10 ML SDV ONE (08:22)
[2018-01-30] MEDS ORDERED: LIDOCAINE 1% 300 MG/30 ML SDV ONE (08:22)
[2018-01-30] MEDS ORDERED: HEPARIN 10,000 UNIT/10 ML MDV (1,000 UNIT/ML) ONE (08:22)
[2018-01-30] MEDS ORDERED: fentaNYL 100 MCG/2 ML INJ ONE (08:28)
[2018-01-30] MEDS ORDERED: PROPOFOL/EMULSION 500 MG/50 ML BOTTLE IV ONE (08:28)
[2018-01-30] MEDS ORDERED: REMIFENTANIL HCL 1 MG VIAL ONE ×2 (08:28→11:01)
[2018-01-30] MEDS ORDERED: MIDAZOLAM 2 MG/2 ML VIAL ONE (08:34)
[2018-01-30] MEDS ORDERED: ROCURONIUM 50 MG/5 ML VIAL ONE (10:11)
[2018-01-30] MEDS ORDERED: PROPOFOL 200 MG/20 ML VIAL ONE (11:01)
[2018-01-30] MEDS ORDERED: ACETAMINOPHEN 325 MG TAB PO PRN (11:27)
[2018-01-30] MEDS ORDERED: NALOXONE HCL 0.4 MG/ML INJ IVP PRN (12:02)
--- NOTE | 2018-01-30 12:02 | POSTANESTH ---
Post Anesthetic Evaluation Cardiovascular Status: Normal, Stable Respiratory Status: Normal, Stable Level of Consciousness/Mental Status: Can Participate in Eval Pain Control: Adequate, Prn Tx Ordered Nausea/Vomiting Control: Adequate, Prn Tx Ordered Complications Possibly Related to Anesthesia: None Noted
--- NOTE | 2018-01-30 13:49 | EPPROC ---
Electrophysiology Procedure Note: ELECTROPHYSIOLOGIC STUDY AND CATHETER MEDIATED CRYO ABLATION OF SLOW/FAST AV JEAN-PIERRE REENTRY TACHYCARDIA PROCEDURES PERFORMED: 74673-38 EP evaluation with RA/RV/LA pace/record, with arrhythmia induction 55681-10 EP evaluation with RA/RV pace record, insert/reposition catheter, with arrhythmia induction 40333 Intracardiac catheter ablation, SVT arrhythmogenic focus 33453 3D mapping Fluoroscopy INDICATION: Prior ablation for SVT at our institution Recurrent SVT and presyncope PROCEDURE: Catheters & Anesthesia: The patient arrived in the Electrophysiology Laboratory in the fasting state. The right clavicular region, right groin, and left groin area were prepped and draped in the usual sterile manner. Anesthesiologist Dr. Andrew Frost administered general anesthesia. Appropriate non-invasive blood pressure, pulse oximetry and end-tidal CO2 monitoring was established. All catheters were placed percutaneously using the modified Seldinger technique , and advanced into position under fluoroscopic guidance. One #6 [place] hexapolar non-deflectable electrode catheter was inserted into the right atrial appendage via the left femoral vein (2mm spacing; except the proximal ring which was 25cm from the tip used for unipolar recordings). One #7 [place] deflectable octapolar electrode catheter was advanced to the His-bundle position via the left femoral vein (2mm spacing). One #7 [place] deflectable quadrapolar catheter was advanced to the anteroseptal right ventricle via the right femoral vein. One #7 [place] deflectable catheter with 10 pairs of electrodes was placed via the right femoral vein into the coronary sinus. Heparin was given to keep ACT > 200 s. Programmed stimulation was performed from the right atrium, right ventricle and coronary sinus (left atrium). Parahisian pacing demonstrated constant H-A interval with changing V-A intervals and stimulus-A intervals during capture and loss of capture of proximal RBB proving retrograde conduction over AV node. AVNRT was induced easily during infusion of isoproterenol 0.5-1 mcg/min. Ventricular extrastimuli delivered during tachycardia without altering antegrade His bundle activation did not advance next atrial potential, indicating that the tachycardia was not utilizing an accessory pathway for retrograde conduction. VA interval was 35 ms. Post entrainment of the tachycardia from the ventricle, there was VAHV response. A Mobi sheath was used. Cryo applications were delivered to the region between the tricuspid annulus and the coronary sinus ostium, at the level of the upper edge of the coronary sinus ostium. Cryo applications were also delivered along the roof of the proximal coronary sinus. Programmed stimulation was continued post ablation at baseline and during graded doses of isoproterenol upto 4mcg/min. Sustained AVNRT was not inducible. There were single echo beats. The catheters were removed. Sheaths were removed in the EP lab after applying subcutaneous purse string suture. The patient was transferred to the cardiovascular holding area in stable condition. There were no apparent complications. Results: A. Spontaneous Intervals: Pre ablation SCL 1370 ms AH 75 ms HV 45 ms Post ablation SCL 790 ms AH 65 ms HV 45 ms B. Antegrade AV jean-pierre function (decremental pacing) Pre ablation FPERP 720 ms SPERP 670 ms WBB CL 650 ms (AH jump from 170 ms to 320 ms at FPERP) Post ablation FPERP 470 ms WBB CL 460 ms C. Retrograde AV jean-pierre function (decremental pacing) Pre ablation FPERP 630 ms WBB 620 ms D. Arrhythmias: Sustained slow/fast AVNRT Cycle length 440 ms, AH interval 340 ms, CHAVES interval 100 ms VA interval 35 ms CONCLUSIONS 1. 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 ( Slow/fast AVNRT). 2. Successful cryo-ablation of the slow AV jean-pierre pathway with elimination of 1 :1 antegrade conduction over the slow AV jean-pierre pathway, all retrograde conduction over the slow AV jean-pierre pathway and the inducibility of AVNRT. 3. No complications. Patient Problems: Problems Problem Status Onset Ventricular tachycardia Acute Palpitations Acute AVNRT (AV jean-pierre re-entry tachycardia) Acute Supraventricular tachycardia Acute
--- NOTE | 2018-01-30 16:36 | CPEKG ---
Test Reason : OPEN Blood Pressure : / mmHG Vent. Rate : 080 BPM Atrial Rate : 081 BPM P-R Int : 163 ms QRS Dur : 089 ms QT Int : 385 ms P-R-T Axes : 052 -05 021 degrees QTc Int : 445 ms Sinus rhythm Ventricular premature complex Abnormal inferior Q waves Confirmed by Amarjit Castle ([id number]) on 01/30/2018 4:36:16 PM Referred By: Confirmed By:Amarjit Castle
--- NOTE | 2018-01-30 16:41 | CPEKG ---
Test Reason : OPEN Blood Pressure : / mmHG Vent. Rate : 070 BPM Atrial Rate : 073 BPM P-R Int : 171 ms QRS Dur : 095 ms QT Int : 424 ms P-R-T Axes : 073 021 013 degrees QTc Int : 458 ms Sinus rhythm Ventricular premature complex Abnormal inferior Q waves Confirmed by Amarjit Castle ([id number]) on 01/30/2018 4:41:40 PM Referred By: Confirmed By:Amarjit Castle
[2018-01-31 04:46] LABS: PLATELET COUNT 184 10^3/uL (150-400)
[2018-01-31] MEDS ORDERED: ASPIRIN EC 81 MG TAB PO SCH (09:00)
--- NOTE | 2018-01-31 10:05 | CPEKG ---
Test Reason : OPEN Blood Pressure : / mmHG Vent. Rate : 069 BPM Atrial Rate : 071 BPM P-R Int : 163 ms QRS Dur : 096 ms QT Int : 439 ms P-R-T Axes : 042 006 011 degrees QTc Int : 471 ms Sinus rhythm Multiple premature complexes, vent & supraven Sinus pause Abnormal inferior Q waves Confirmed by Goyo Mustafa ([id number]) on 01/31/2018 10:05:05 AM Referred By: Confirmed By:Goyo Mustafa
--- NOTE | 2018-01-31 14:47 | ASMTCMCOM ---
CM Note CM Note Notes: 01/31/2018 Case Management Note Pt admitted s/p SVT ablation. ECHO today. Met w/pt and daughter Mary [phone] to discuss d/c needs. There are no therapy evals ordered at this time. There are no case management d/c needs identified. Pt lives independently in her own home and is able to drive. Daughter Mary helps if needed with errands and light house keeping. Pt plans to spend a few days with Mary once discharged from hospital. Pt has not needed a home care agency or SNF rehab in the past. mechanical cad drafter is Dr. Eliezer Connolly. Case Management d/c poc: independent with follow up as directed. Case Management available if needs change. Date Signed: 01/31/2018 02:46 PM Electronically Signed By:Rosemary Baird RN
--- NOTE | 2018-01-31 15:20 | ASDISCHSUM ---
Discharge Information Plan Status:Home with No Needs Medically Cleared to Leave:01/30/2018 Discharge Date:01/30/2018 CM D/C Disposition:Home, Routine, Self-Care ADT D/C Disposition:Home, Routine, Self-Care Projected Discharge Date:01/30/2018 Transportation at D/C:Family Discharge Delay Reason: Follow-Up Date:01/30/2018 Discharge Slot: Final Diagnosis: Placement Information Patient Contact Information Contact Name:ELDON Relationship:Daughter Address: Work Phone: City:[place] Alternate Phone: State/[place] Code:[place] Email: Financial Information Financial Class:Medicare Advantage Plans Primary Plan Desc:[facility] Primary Plan Number:[id number] Secondary Plan Desc: Secondary Plan Number: Assessment Information LACE LACE Length of stay for Answers: 1 day current admission Acuity / Level of Answers: No Care: Did the patient have an inpatient admission? # of Emergency department Answers: 3-4 visits in the last 6 months Score: 4 Date Signed: 01/31/2018 03:19 PM Electronically Signed By:Rosemary Baird RN [facility] Progress Note CM Note CM Note Notes: 01/31/2018 Case Management Note Pt admitted s/p SVT ablation. ECHO today. Met w/pt and daughter Mary [phone] to discuss d/c needs. There are no therapy evals ordered at this time. There are no case management d/c needs identified. Pt lives independently in her own home and is able to drive. Daughter Mary helps if needed with errands and light house keeping. Pt plans to spend a few days with Mary once discharged from hospital. Pt has not needed a home care agency or SNF rehab in the past. quality assurance tester is Dr. Eliezer Connolly. Case Management d/c poc: independent with follow up as directed. Case Management available if needs change. Date Signed: 01/31/2018 02:46 PM Electronically Signed By:Rosemary Baird RN Intervention Information
[2018-01-31 15:39] VITALS: BP 116/57
[2018-01-31] MEDS ORDERED: PROPAFENONE HCL SR 225 MG CAP PO SCH (21:00)
--- NOTE | 2018-02-01 06:20 | GDS ---
ADMISSION DIAGNOSIS: Supraventricular tachycardia. DISCHARGE DIAGNOSIS: Supraventricular tachycardia status post ablation. PROCEDURES PERFORMED: Electrocardiogram, electrophysiology study, cryoablation of slow AV cassandra pathway and echocardiogram. BRIEF HISTORY: Please see H and P. Briefly, Ms Batsheva Leonard is a 77-year-old female who presented yesterday, January 30 for repeat SVT ablation in the setting of increasing frequency of episodic SVT with presyncope, syncope, and injury. She was counseled regarding risk of AV node injury with repeat ablation , potentially requiring implant of a permanent pacemaker. HOSPITAL COURSE: Patient underwent cryoballoon ablation for SVT yesterday with Dr. Montez Briones, with elimination of 1:1 antegrade conduction over the slow AV cassandra pathway, all retrograde conduction over the slow AV cassandra pathway, and inducibility of AVNRT. She has done well in the postprocedural period and has been stable overnight. Of note, her telemetry demonstrated a 32-beat run of SVT occurring at 4:30 this morning post ablation. Batsheva has been started on propafenone 225 mg sustained release. She will be discharged home in stable condition. PHYSICAL EXAMINATION: GENERAL APPEARANCE: No apparent distress. She is alert and oriented x4. VITAL SIGNS: Blood pressure 116/57, heart rate 82, respiratory rate 20, oxygen saturation 93% on room air HEENT: Head is normocephalic. Lips and tongue are pink and moist with no signs of cyanosis. Conjunctivae are pink. NECK: Trachea is midline, 2+ carotid pulses bilaterally. No auscultated bruits. No jugular venous distention. RESPIRATORY : Lungs are clear to auscultation without adventitious breath sounds. No rhonchi, rales, or wheezes. No accessory muscle use. No intercostal muscle retraction noted. CARDIAC: Regular rate and rhythm, S1, S2. No S3, S4, gallops, rubs, or murmurs noted. ABDOMEN: Soft, nontender. Bowel sounds x4 quadrants. No organomegaly. No palpable masses. SKIN: [place], warm, dry. No cyanosis. No clubbing. No peripheral edema. EXTREMITIES: Bilateral purse string sutures removed without evidence of hematoma, oozing, redness, swelling or warmth. No edema. Pulses 2+ bilaterally. LABORATORY STUDIES: Drawn today: white blood cells 6.94, hemoglobin and hematocrit are stable. CMP is stable. Troponin 0.083. PROCEDURES: Electrophysiology and SVT ablation as mentioned above. Preliminary echocardiogram done this morning is stable compared to her prior echo earlier this month. Electrogram done today shows normal sinus rhythm without any significant ST or T-wave abnormalities, normal [place] interval. DISCHARGE DISPOSITION: The patient will be discharged home in stable condition. She understands that she is not to lift more than 10 pounds for the next 10 days. She will not drive for the next 2-4 weeks until we can determine how she responds to propafenone and whether she has recurrence of her supraventricular tachycardia. She will follow up in our clinic in 2 weeks for a repeat EKG and we will plan for pacemaker implant with repeat ablation in 1 month if she experiences recurrent symptoms. DISCHARGE MEDICATIONS: Please see home medication reconciliation sheet. Note patient has been started on propafenone SR 225 mg twice daily. She was also started on aspirin 81 mg daily for the next 6 weeks. DISCHARGE INSTRUCTIONS: As above. Post SVT ablation discharge instructions reviewed in detail with patient and recommendations regarding driving were also reviewed with her daughter. The patient has a followup visit arranged in clinic with Dr. Briones in approximately 2 weeks. At the time of discharge, Ms. Leonard verbalizes understanding of all instructions and she has no questions or concerns. She will contact our clinic if she experiences any new or concerning symptoms prior to her upcoming clinic visit. /[id number]/MODL MTDD
== END 2018-01-31 16:05 | disposition home or self-care (01) ==
LOC: FCATH 07:04 → F2W 11:26
PROVIDERS: ADMIT Registered Nurse; ATTEND Internal Medicine Cardiovascular Disease
DX: I47.1 Supraventricular tachycardia (principal)
CPT/HCPCS: 71046; 71100; 93005; 93609; 93621; 93623; 93653; C1730; C1731; C1733; C1766; G0378; J1644; J2250; J2704; J3010

== ENCOUNTER 2018-02-18 06:55 | Observation (INO) | payer OTHER ==
[2018-02-18] MEDS ORDERED: NS 1,000 ML IV ONE (06:56)
[2018-02-18 07:35] LABS: PLATELET COUNT 199 10^3/uL (150-400)
[2018-02-18 07:45] LABS: INR 0.96 (0.83-1.16)
[2018-02-18] MEDS ORDERED: ISOPROTERENOL HCL/D5W 0.2 MG/50 ML BAG IV ONE (07:45)
[2018-02-18] MEDS ORDERED: LIDOCAINE 1% 300 MG/30 ML SDV ONE (07:45)
[2018-02-18] MEDS ORDERED: HEPARIN 10,000 UNIT/10 ML MDV (1,000 UNIT/ML) ONE (07:45)
[2018-02-18] MEDS ORDERED: BUPIVACAINE 0.75% 10 ML SDV ONE (07:46)
--- NOTE | 2018-02-18 08:24 | PDANEPAE ---
ANE History of Present Illness cardiac ablation ANE Past Medical History - Cardiovascular History Hx Hypertension: No Hx Arrhythmias: Yes Hx Chest Pain: No Hx Coronary Artery / Peripheral Vascular Disease: No Hx CHF / Valvular Disease: No Hx Palpitations: Yes - Pulmonary History Hx COPD: No Hx Asthma/Reactive Airway Disease: No Hx Recent Upper Respiratory Infection: No Hx Oxygen in Use at Home: No Hx Sleep Apnea: Yes Pulmonary History Comment: KEVIN on CPAP since 04/15 - Neurologic History Hx Cerebrovascular Accident: No Hx Seizures: No Hx Dementia: No - Endocrine History Hx Diabetes: No Hypothyroid: No Hyperthyroid: No Obesity: moderate - Renal History Hx Renal Disorders: No - Liver History Hx Hepatic Disorders: No - Neurological & Psychiatric Hx Hx Neurological and Psychiatric Disorders: No - Cancer History Hx Cancer: Yes Cancer History Comment: Breast, uterus - GI History GERD: no Hx Gastrointestinal Disorders: No - Chronic Pain History Chronic Pain: No - Surgical History Prior Surgeries: S/p ablation x2, septoplasty, hysterectomy, breast lumpectomy ANE Review of Systems Review of Systems: - Exercise capacity METS (RN): 3 METS ANE Patient History - Allergies Allergies/Adverse Reactions: adhesive tape Allergy (Verified 01/23/18 20:20) - Home Medications Home Medications: Acetaminophen [Tylenol 325mg (*)] 325 mg PO DAILY PRN 01/24/18 [Last Taken Unknown] - Anes Hx Anes Hx: no prior problems - Smoking Hx Smoking Status: Former smoker (none for 40 years) - Alcohol Use Alcohol Use: Other (1 glass of wine /day) - Family Anes Hx Family Anes Hx: none ANE Labs/Vital Signs - Labs Result Diagrams: 02/18/18 07:15 02/18/18 07:15 - Vital Signs Height: 170.18 cm Weight: 103.419 kg ANE Physical Exam - Airway Neck exam: FROM Mallampati Score: Class 2 - Pulmonary Pulmonary: clear to auscultation - Cardiovascular Cardiovascular: regular rate and rhythym - ASA Status ASA Status: III ANE Anesthesia Plan Anesthesia Plan: general endotracheal anesthesia
[2018-02-18] MEDS ORDERED: ceFAZolin 2 GM/DEXTROSE 100 ML IV ONE (08:37)
[2018-02-18] MEDS ORDERED: BACITRACIN IRRIGATION/NS 50,000 UNITS/1,000 ML BTL IRR ONE (08:37)
--- NOTE | 2018-02-18 08:50 | PDGENHP ---
History & Physical Chief Complaint: AVNRT, recurrent syncope and pre-syncope History of Present Illness: 2 recent ablations for AVNRT with recurrent episodes of pre-syncope and syncope and SVT noted on [employer] monitor. Relevant Physical Exam: General: A&Ox4, no apparent distress. Respiratory: CTA. Cardiac: Regular rate and rhythm, S1, S2. Extremities: Pulses 2+ bilaterally, no edema Cardiorespiratory Assessment: Plan to proceed with AVNRT ablation today as planned. Ms. Leonard understands the high likelihood that she will require a permanent pacemaker and will likely be pacemaker dependent given the location of today's planned ablation. She verbalizes understanding and does not have any questions or concerns at this point.
[2018-02-18] MEDS ORDERED: PROPOFOL 200 MG/20 ML VIAL ONE (08:53)
[2018-02-18] MEDS ORDERED: DEXAMETHASONE 4 MG/ML VIAL ONE (08:53)
[2018-02-18] MEDS ORDERED: ROCURONIUM 50 MG/5 ML VIAL ONE ×2 (08:53→09:47)
[2018-02-18] MEDS ORDERED: MIDAZOLAM 2 MG/2 ML VIAL ONE (09:04)
[2018-02-18] MEDS ORDERED: PHENYLEPHRINE HCL 100 MCG/ML SYR ONE (09:19)
[2018-02-18] MEDS ORDERED: PHENYLEPHRINE 10 MG/ML SDV ONE (09:20)
[2018-02-18] MEDS ORDERED: DESFLURANE 240 ML BOTTLE IH ONE (09:48)
[2018-02-18] MEDS ORDERED: ePHEDrine SULFATE 25 MG/5 ML SYR ONE (09:59)
[2018-02-18] MEDS ORDERED: ATROPINE SULFATE 1 MG/10 ML SYR ONE (10:00)
[2018-02-18] MEDS ORDERED: ATROPINE SULFATE 1 MG/ML VIAL ONE (10:02)
[2018-02-18] MEDS ORDERED: SUGAMMADEX SODIUM 200 MG/2 ML VIAL IVP ONE (10:33)
[2018-02-18] MEDS ORDERED: ACETAMINOPHEN 325 MG TAB PO PRN (10:33)
--- NOTE | 2018-02-18 10:42 | EPPROC ---
Electrophysiology Procedure Note: ELECTROPHYSIOLOGIC STUDY AND CATHETER MEDIATED ABLATION OF SLOW/FAST AV JEAN-PIERRE REENTRY TACHYCARDIA PROCEDURES PERFORMED: 56335-43 EP evaluation with RA/RV/LA pace/record, with arrhythmia induction 63844-20 EP evaluation with RA/RV pace record, insert/reposition catheter, with arrhythmia induction 99323 Intracardiac catheter ablation, SVT arrhythmogenic focus 24860 3D mapping Fluoroscopy INDICATION: Recurrent SVT 2 prior ablations at our institution PROCEDURE: Catheters & Anesthesia: The patient arrived in the Electrophysiology Laboratory in the fasting state. The right clavicular region, right groin, and left groin area were prepped and draped in the usual sterile manner. Anesthesiologist Dr. Wendy Sanchez administered general anesthesia. Appropriate non-invasive blood pressure, pulse oximetry and end-tidal CO2 monitoring was established. All catheters were placed percutaneously using the modified Seldinger technique , and advanced into position under fluoroscopic guidance. One #7 Thai deflectable octapolar electrode catheter was advanced to the His-bundle position via the left femoral vein (2mm spacing). One #7 Thai deflectable quadrapolar catheter was advanced to the anteroseptal right ventricle via the right femoral vein. One #7 Thai deflectable catheter with 10 pairs of electrodes was placed via the right femoral vein into the coronary sinus. Heparin 3000 U was given. Programmed stimulation was performed from the right atrium, right ventricle and coronary sinus (left atrium). Antegrade slow pathway conduction was present and patient had documented SVT. A #8 Thai deflectable quadrapolar electrode catheter (2mm-5mm-2mm spacing) with 4 mm tip electrode and sensor for the 3D mapping Carto system was advanced to the right atrium. 3 D mapping of the inter-atrial septum and coronary sinus was performed and location of the AV node was marked. A Mobi sheath was used. RF applications were delivered to the region between the tricuspid annulus and the coronary sinus ostium, at the level of the upper edge of the coronary sinus ostium. Radiofrequency applications were also delivered along the roof of the proximal coronary sinus. Junctional rhythm occurred during all of the RF applications. Programmed stimulation was continued post ablation at baseline and during graded doses of isoproterenol upto 4mcg/min. + 1 mg atropine IV. Sustained AVNRT was not inducible. There were no echo beats. The catheters were removed. Sheaths were removed in the EP lab after applying subcutaneous purse string suture. The patient was transferred to the cardiovascular holding area in stable condition. There were no apparent complications. Results: A. Spontaneous Intervals: Pre ablation SCL 1160 ms AH 80 ms HV 40 ms Post ablation SCL 990 ms AH 80 ms HV 40 ms B. Antegrade AV jean-pierre function (decremental pacing) Pre ablation FPERP 490 ms SPERP 440 ms WBB CL 430 ms (AH jump from 130 ms to 320 ms at FPERP) Post ablation FPERP 400 ms WBB CL 390 ms C. Retrograde AV jean-pierre function (decremental pacing) Pre ablation FPERP 440 ms WBB CL 430 ms CONCLUSIONS 1. AVNRT 2. Successful ablation of the slow AV jean-pierre pathway with elimination of 1:1 antegrade conduction over the slow AV jean-pierre pathway, all retrograde conduction over the slow AV jean-pierre pathway and the inducibility of AVNRT. 3. Frequent and nonconducted PAC. PVC. 4. No complications. Patient Problems: Problems Problem Status Onset AVNRT (AV jean-pierre re-entry tachycardia) Acute Palpitations Acute Supraventricular tachycardia Acute Ventricular tachycardia Acute
--- NOTE | 2018-02-18 12:03 | POSTANESTH ---
Post Anesthetic Evaluation Cardiovascular Status: Similar to Pre-Op Cond Respiratory Status: Similar to Pre-op Cond. Level of Consciousness/Mental Status: Can Participate in Eval Pain Control: Adequate, Prn Tx Ordered Nausea/Vomiting Control: Adequate, Prn Tx Ordered Complications Possibly Related to Anesthesia: None Noted
[2018-02-19 04:31] LABS: PLATELET COUNT 150 10^3/uL (150-400)
[2018-02-19 07:50] VITALS: BP 116/66
--- NOTE | 2018-02-19 08:20 | PDDCSUM ---
Discharge Summary Discharge Summary: 77 F admitted for SVT ablation. Hosp course - uneventful, remains in NSR, no further SVT post ablation Exam VSS Chest CTA CVS S1S2 RRR Lungs CTA AO x3 Sutures removed from bilat groin, no bleed/hematoma Activity restrictions and DVT precautions reviewed with patient. See med recon list for meds, ASA x 6 weeks f.u. with Anselmo 4-6 weeks d.w. patient that she should not drive until f.u. visit, she will still continue to have "skipped beats" but to let us know if sustained palpitations > 30 s
[2018-02-19] MEDS ORDERED: ASPIRIN 81 MG CHEWABLE TAB PO SCH (09:00)
--- NOTE | 2018-02-19 12:37 | ECHO ---
[email or web address] [address] [address] Main: [phone] Fax: Transthoracic Echocardiogram Name: ANNIA SHIN MR#: [id number] Study Date: 02/19/2018 Study Time: 10:12 AM Date of : 1940 Age: 77 year(s) Height: 170.2 cm (67 in.) Weight: 103.42 kg (228 lb.) BSA: 2.14 m2 Gender: Female Examination: Echo Indication: F/U Post EP Study Image Quality: Adequate Contrast: Requested by: Cecil Sellers BP: 116 mmHg/66 mmHg Heart Rate: Rhythm: Indication: F/U Post EP Study Procedure Staff Puppet Master: Graciela Garcia RDCS Reading Physician: Fredrick Felipe MD Requesting Provider: Measurements: Chambers Valvular Assessment AV/MV Valvular Assessment TV/PV Normal Normal Normal Name Value Range Name Value Range Name Value Range Ao [place] (2D): 2.8 cm (1.4 cm-2.6 AV Vmax: 1.31 m/s (1 m/s-1.7 TR Vmax: 2.90 mm/s ( - ) cm) m/s) TR PGmax: 34 mmHg ( - ) IVSd (2D): 0.9 cm (0.6 cm-1.1 AV maxP mmHg ( - ) syst. PAP: 39 mmHg ( - ) cm) AV meanP mmHg ( - ) PV Vmax: 0.79 m/s (0.6 m/s-0.9 LVDd (2D): 4.9 cm (3.9 cm-5.3 GAURANG (VTI): 2.8 cm ( - ) m/s) cm) MV E Vmax: 0.61 m/s ( - ) PV PGmax: 2 mmHg ( - ) LVDs (2D): 3.6 cm (2.1 cm-4 MV A Vmax: 0.67 m/s ( - ) cm) MV E/A: 0.91 ( - ) LVPWd (2D): 0.9 cm ( - ) MV PHT: 0.073 s ( - ) LVOTd 2.1 cm 2.1 cm mm MVA (PHT): 3.0 s ( - ) LVEF (BP): 68 % (>=55 %) RVDd(2D): 3.4 cm (1.9 cm-3.8 cmmm) Continued Measurements: Chambers Valvular Assessment AV/MV Valvular Assessment TV/PV Name Value Name Value Name Value LADs: 3.5 cm MV DecTime: 246 m/s CVP (est.): 5 mmHg LADs Lon.3 cm MV E' Septal: 0.08 m/s LA Area: 23.9 cm2 MV E/E' Septal: 7.30 LA Volume: 81 ml MV E/E' Lateral: 5.70 LA Volume Index: 37.9 ml/m2 RA Area: 21.1 cm2 Additional Vessels Patient: ANNIA SHIN Study Date: 02/19/2018 Page 1 of 2 10:12 AM Name Value Ao Ascendin.6 cm Inferior Vena Cava: 1.2 cm Findings: Left Ventricle: Normal size left ventricle. No LV hypertrophy. Normal global systolic LV function. EF is 68 %. No regional wall motion abnormality. Unable to assess diastolic dysfunction. Right Ventricle: Normal size right ventricle. Normal RV function. Left Atrium: The left atrium is mildly dilated. Right Atrium: The right atrium is mildly dilated. Mitral Valve: The mitral valve is normal in appearance and function. Mild mitral valve regurgitation is present. No mitral stenosis is present. Aortic Valve: The aortic valve is tri-leaflet. Trivial aortic valve regurgitation. No aortic valve stenosis is present. Tricuspid Valve: The tricuspid valve is normal in appearance and function. Mild tricuspid regurgitation is present. The pulmonary artery pressure is normal. Right ventricular systolic pressure measures 39mmHg. Pulmonic Valve: The pulmonic valve is normal in appearance and function. Trivial pulmonic valve regurgitation. Aorta: The aorta is normal. Normal size aortic root measuring 2.8 cm. Normal size ascending aorta measuring 3.6 cm. IVC: The IVC is normal sized. Pericardium: No pericardial effusion. No pleural effusion. (No Signature Object) Patient: ANNIA SHIN Study Date: 02/19/2018 Page 2 of 2 10:12 AM [id number]
--- NOTE | 2018-02-21 09:30 | CPEKG ---
Test Reason : OPEN Blood Pressure : / mmHG Vent. Rate : 074 BPM Atrial Rate : 072 BPM P-R Int : 156 ms QRS Dur : 088 ms QT Int : 405 ms P-R-T Axes : 064 000 032 degrees QTc Int : 450 ms Sinus rhythm Abnormal inferior Q waves Confirmed by Goyo Mustafa ([id number]) on 02/21/2018 9:29:58 AM Referred By: Confirmed By:Goyo Mustafa
--- NOTE | 2018-02-21 09:32 | CPEKG ---
Test Reason : OPEN Blood Pressure : / mmHG Vent. Rate : 081 BPM Atrial Rate : 081 BPM P-R Int : 165 ms QRS Dur : 093 ms QT Int : 404 ms P-R-T Axes : 071 000 -07 degrees QTc Int : 469 ms Sinus rhythm Inferior infarct, old Confirmed by Goyo Mustafa ([id number]) on 02/21/2018 9:32:07 AM Referred By: Confirmed By:Goyo Mustafa
--- NOTE | 2018-02-21 09:36 | CPEKG ---
Test Reason : OPEN Blood Pressure : / mmHG Vent. Rate : 057 BPM Atrial Rate : 057 BPM P-R Int : 176 ms QRS Dur : 090 ms QT Int : 438 ms P-R-T Axes : 046 009 029 degrees QTc Int : 427 ms Sinus rhythm Abnormal inferior Q waves Confirmed by Goyo Mustafa ([id number]) on 02/21/2018 9:35:29 AM Referred By: Confirmed By:Goyo Mustafa
== END 2018-02-19 13:38 | disposition home or self-care (01) ==
LOC: FCATH 06:55 → F2W 10:40
PROVIDERS: ADMIT Internal Medicine Cardiovascular Disease; ATTEND Internal Medicine Cardiovascular Disease
PROC: 02563ZZ Destruction of Right Atrium, Percutaneous Approach (ICD-10-PCS; principal; 2018-02-18)
DX: I47.1 Supraventricular tachycardia (principal)
CPT/HCPCS: 93005; 93306; 93613; 93621; 93623; 93653; C1731; C1732; C1766; G0378; J0461; J1100; J1644; J2250; J2370; J2704; J0690

== ENCOUNTER → 2018-04-04 | Outpatient (CLI) | payer OTHER | LOC: GIMAGING 16:25 | PROVIDERS: ATTEND Family Medicine | DX: M51.37 Other intervertebral disc degeneration, lumbosacral region (principal); M62.838 Other muscle spasm | CPT/HCPCS: 72100-PO ==

== ENCOUNTER → 2018-04-23 | Outpatient (CLI) | payer OTHER | LOC: FCPNEURO 21:47 | PROVIDERS: ATTEND Psychiatry & Neurology Sleep Medicine | DX: G47.31 Primary central sleep apnea (principal) ==